=== PATIENT | male | born 1965 | race Caucasian/White ===

== ENCOUNTER → 2022-03-23 09:02 | Outpatient (CLI) | payer OTHER, SELFPAY ==
--- NOTE | 2022-03-23 09:08 | DI.RAD.S_ITS ---
PROCEDURE: XR WRIST RT MIN 3V INDICATIONS: pain and stiffness in right hand and wrist TECHNIQUE: 3 views of the wrist were acquired. COMPARISON: [facility], CR, XR HAND RT MIN 3V, 03/23/2022, 9:08. FINDINGS: Bones: No acute fracture dislocation visualized. Pronounced polyarticular joint space loss including the radiocarpal joint, STT joint, and other carpal joints. Periarticular lucencies also demonstrated. Soft tissues: No suspicious soft tissue calcifications. Soft tissue swelling likely present about the wrist. IMPRESSION: 1. No acute fracture visualized. 2. 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 Periarticular lucencies are also demonstrated likely representing subchondral cystic change but erosions can appear similarly and an inflammatory arthropathy is not excluded. Dictated by: Gee Morrow M.D. on 03/23/2022 at 10:05 Approved by: Gee Morrow M.D. on 03/23/2022 at 10:12
--- NOTE | 2022-03-23 09:08 | DI.RAD.S_ITS ---
PROCEDURE: XR HAND RT MIN 3V INDICATIONS: pain and stiffness in right hand and wrist TECHNIQUE: 3 views of the hand(s) acquired. COMPARISON: [facility], CR, XR WRIST RT MIN 3V, 03/23/2022, 9:08. FINDINGS: Bones: No acute fracture or dislocation visualized. Polyarticular joint space loss and spurring, most pronounced at the 3rd MCP joint, 1st MCP joint, and scattered IP joints. Periarticular lucencies also present. The wrist is dictated separately. Soft tissues: No suspicious soft tissue calcifications. IMPRESSION: 1. No acute fracture visualized. 2. Polyarticular degenerative changes present. Periarticular lucencies also demonstrated indeterminate for erosions or subchondral cystic change. Dictated by: Gee Morrow M.D. on 03/23/2022 at 10:12 Approved by: Gee Morrow M.D. on 03/23/2022 at 10:15
== END ==
PROVIDERS: Referring Provider Internal Medicine Cardiovascular Disease; Visit Provider Internal Medicine Cardiovascular Disease
DX: M25.641 Stiffness of right hand, not elsewhere classified (principal); M25.531 Pain in right wrist
CPT/HCPCS: 73110; 73130